=== PATIENT | male | born 1935 | race Caucasian/White ===

== ENCOUNTER → 2016-07-18 | Day surgery (SDC) | payer OTHER ==
[~2016-07-18] VITALS: Ht 172.7 cm; Wt 85.5 kg
[~2016-07-18] MED LIST: ASPI1TAB69 PO; ATOR40TA16 PO; BUPIVACAINE/EPINEPHRINE 0.25% 50 ML VIAL ONE; BUPIVACAINE/EPINEPHRINE 0.5% PF 30 ML VIAL ONE; CALC1CAP PO; CHLORHEXIDINE GLUCONATE 2 % 1 PACK (2 CLOTHS) TOPICAL PRN; CHOL50008 PO; DEXAMETHASONE SOD PHOS 4 MG/ML VIAL ONE; DO NOT ADM ANY ANTICOAGULANT DRUGS PRN; FAMO20TA2 PO; FAMOTIDINE 20 MG/2 ML VIAL ONE; FISHCAP4 PO; GABA600T PO; INSULIN HUMAN REGULAR 1,000 UNITS/10 ML VIAL SQ PRN; LACTATED RINGER'S 1000 ML IV PRN; LANTUS2P SQ; METOPROLOL TARTRATE 25 MG TAB PO PRN; MIDAZOLAM HCL 2 MG/2 ML VIAL ONE; MORPHINE SULFATE 4 MG/ML INJ IV PRN; MULTTAB67 PO; NEOSTIGMINE 3 MG/3 ML SYR IV ONE; NITR0.4S SL; NOVOLOGP2 SQ; NOVOLOGSS SQ; ONDANSETRON HCL 4 MG/2 ML VIAL IV PRN; ONDANSETRON HCL 4 MG/2 ML VIAL IV PUSH ONE; POVIDONE IODINE 5% (ANTISEPSIS KIT) 4 APPLICATIONS EACH NARE PRN; PROPOFOL 200 MG/20 ML AMP IV ONE; SODIUM CHLORID 0.9% 500 ML IV PRN; TAMS0.4C4 PO; VITA10002 PO; ceFAZolin 1,000 MG/NS 100 ML IV SCH; fentaNYL CITRATE 250 MCG/5 ML AMP ONE; oxyCODONE/ACETAMINOPHEN 7.5 MG/325 MG TAB PO PRN
[2016-07-18 09:33] VITALS: BP 157/66; PULSE 66; RESP 18; TEMP 97.5; O2SAT 96
[2016-07-18 09:50] LABS: AUTOMATED NEUTROPHIL # 4.2 TH/MM3 (1.8-7.7); BASOPHIL # 0.1 TH/MM3 (0-0.2); BASOPHIL % 0.9 % (0.0-2.0); EOSINOPHIL # 0.1 TH/MM3 (0-0.4); HEMATOCRIT 35.2 % (39.0-51.0); HEMO FLAGS DIFF FINAL; LYMPHOCYTE # 1.3 TH/MM3 (1.0-4.8); MEAN CELL VOLUME 93.9 FL (80.0-100.0); MEAN CORPUSCULAR HEMOGLOBIN 31.9 PG (27.0-34.0); MEAN CORPUSCULAR HGB CONC 33.9 % (32.0-36.0); MONO % 12.8 % (0.0-8.0); NEUT % 64.3 % (16.0-70.0); PLATELET COUNT 237 TH/MM3 (150-450); RED BLOOD COUNT 3.75 MIL/MM3 (4.50-5.90); RED CELL DISTRIBUTION WIDTH 13.5 % (11.6-17.2); WHITE BLOOD COUNT 6.5 TH/MM3 (4.0-11.0)
--- NOTE | 2016-07-18 09:54 | EKG ---
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
[2016-07-18 10:43] LABS: BICARBONATE 28.8 MEQ/L (21.0-32.0); POTASSIUM 4.1 MEQ/L (3.5-5.1)
[2016-07-18 12:40] VITALS: BP 163/68; PULSE 59; RESP 18; O2SAT 100
--- NOTE | 2016-07-21 20:41 | MP ---
cc: BRIAN RIVAS JAMES DATE OF SURGERY July 18, 2016 PREOPERATIVE DIAGNOSIS Chronic kidney disease - transitioning from hemo to peritoneal dialysis - needs permanent hemodialysis access. POSTOPERATIVE DIAGNOSIS Chronic kidney disease - transitioning from hemo to peritoneal dialysis - needs permanent hemodialysis access. PROCEDURE Laparoscopic-assisted peritoneal dialysis catheter placement. SURGEON Kale Montgomery MD SOCIAL MEDIA PROJECT MANAGER ANN MARIE Medina ANESTHESIA General / local DESCRIPTION OF THE PROCEDURE With the patient in the supine position and under general anesthesia, the abdomen was thoroughly prepped with Betadine and draped in a sterile fashion. One gram of Ancef was administered intravenously and following a protocol time-out, the skin and subcutaneous tissue at the proposed incisional areas were preemptively infiltrated with a 0.5% Marcaine with epinephrine. A transverse 2 cm incision was performed along the left medial infracostal region. The incision was deepened through the anterior rectus sheath. The rectus muscle fibers were , posterior rectus sheath, peritoneum elevated and a small peritoneotomy performed through which a 5-Macedonian sheath was advanced into the abdomen. The abdomen was insufflated with carbon dioxide. Laparoscopic visualization revealed no significant intra-abdominal adhesions or gross pathology. A transverse 2 cm incision was performed immediately inferior and to the right of the umbilicus. The incision was deepened through the anterior rectus sheath. An 18 gauge needle was guided caudally and obliquely between the anterior and posterior rectus sheaths and under laparoscopic visualization punctured through the posterior rectus sheath and peritoneum. A J-wire was then delivered into the mid pelvis. The needle was exchanged for a catheter insertion sheath. A coiled peritoneal dialysis catheter was delivered through the tear-away sheath, the coil positioned within the mid pelvis. The internal catheter cuff was placed subjacent to the rectus sheath ____ which was secured around the cuff with interrupted 0 PDS. The subcutaneous portion of the catheter was tunneled and exited through a separate stab incision superolaterally. The titanium adapter was applied to the catheter tip. The catheter was flushed with saline and capped. The abdomen was desufflated. The left subcostal rectus incision was secured with interrupted 2-0 PDS. Skin was secured at the two incision sites with continuous subcuticular 5-0 Monocryl. Reinforced with Steri-Strips and covered with sterile gauze. Instrument, needle, sponge count correct x2. No operative complications. The patient was sent to the recovery room in stable condition having tolerated the procedure well. MD YVROSE Coyle/KK /5:37 PM /8:30 PM
== END | disposition home or self-care (01) ==
LOC: HSDC 08:54
PROVIDERS: ATTEND Surgery Vascular Surgery
DX: N18.6 End stage renal disease (principal); E11.9 Type 2 diabetes mellitus without complications; Z79.4 Long term (current) use of insulin; Z99.2 Dependence on renal dialysis
CPT/HCPCS: 00790; 49324; 80048; 82948; 85025; 93005; C1750; J0690; J1100; J2250; J2405; J2710; J3010; J7040

== ENCOUNTER → 2016-10-11 | Outpatient (CLI) | payer OTHER ==
[~2016-10-11] MED LIST changes: -BUPIVACAINE/EPINEPHRINE 0.25% 50 ML VIAL ONE; -BUPIVACAINE/EPINEPHRINE 0.5% PF 30 ML VIAL ONE; -CHLORHEXIDINE GLUCONATE 2 % 1 PACK (2 CLOTHS) TOPICAL PRN; -DEXAMETHASONE SOD PHOS 4 MG/ML VIAL ONE; -DO NOT ADM ANY ANTICOAGULANT DRUGS PRN; -FAMOTIDINE 20 MG/2 ML VIAL ONE; -INSULIN HUMAN REGULAR 1,000 UNITS/10 ML VIAL SQ PRN; -LACTATED RINGER'S 1000 ML IV PRN; -METOPROLOL TARTRATE 25 MG TAB PO PRN; -MIDAZOLAM HCL 2 MG/2 ML VIAL ONE; -MORPHINE SULFATE 4 MG/ML INJ IV PRN; -NEOSTIGMINE 3 MG/3 ML SYR IV ONE; -NOVOLOGP2 SQ; -ONDANSETRON HCL 4 MG/2 ML VIAL IV PRN; -ONDANSETRON HCL 4 MG/2 ML VIAL IV PUSH ONE; -POVIDONE IODINE 5% (ANTISEPSIS KIT) 4 APPLICATIONS EACH NARE PRN; -PROPOFOL 200 MG/20 ML AMP IV ONE; -SODIUM CHLORID 0.9% 500 ML IV PRN; -ceFAZolin 1,000 MG/NS 100 ML IV SCH; -fentaNYL CITRATE 250 MCG/5 ML AMP ONE; -oxyCODONE/ACETAMINOPHEN 7.5 MG/325 MG TAB PO PRN
--- NOTE | 2016-10-11 15:27 | RADRPT ---
EXAM DATE/TIME: 10/11/2016 10:11 [facility] COMPARISON: No previous studies available for comparison. INDICATIONS : Scrotal swelling and pain after doing Peritoneal dialysis x 1week DOSE: 4.2 mCi TC-99m MAA via peritoneal dialysis catheter PLANAR IMAGIN min, 3 hrs MEDICAL HISTORY : Renal disease, end stage. Hypertension. Diabetes mellitus type 2. SURGICAL HISTORY : Cholecystectomy. Appendectomy. Pacemaker. Peritoneal dialysis catheter x 1 month ago ENCOUNTER: Subsequent ACUITY: 1 week PAIN SCALE: 0/10 LOCATION: lower quadrant TECHNIQUE: 4.2 mCi of MAA were instilled in the sterile fashion into the peritoneum through the peritoneal dialy sis catheter. The patient then instilled the usual 2 L of dyasolate fluid. This was allowed to dwell for 3 hours and then drained the usual fashion. Images were obtained at the end of installation and post drainage. FINDINGS: There is free flow of tracer in the peritoneum without evidence for lesions. On the post drainage films minimal fluid remains in the abdomen with moderate fluid trapped in the ri ght scrotum. CONCLUSION: Evaluation reveals indication between the peritoneal catheter and the right hemiscrotum Tapping fluid in the scrotum. Jeremy Hutchins MD FACR on October 11, 2016 at 15:19 Board Certified Radiologist. This report was verified electronically.
== END ==
LOC: HRAD 08:34
PROVIDERS: ATTEND Internal Medicine Nephrology
DX: N43.3 Hydrocele, unspecified (principal); N50.82 Scrotal pain
CPT/HCPCS: 78291; A9540